=== PATIENT | female | born 1975 | race Caucasian/White ===

== ENCOUNTER 2020-08-16 17:25 | Emergency (ER) | payer BC ==
[2020-08-16 17:33] VITALS: RESP 18
--- NOTE | 2020-08-16 18:26 | XR ---
EXAMINATION TYPE: XR chest 2V DATE OF EXAM: 08/16/2020 COMPARISON: NONE HISTORY: Epigastric pain TECHNIQUE: 2 views FINDINGS: Heart and mediastinum are normal. Lungs are clear. Diaphragm is normal. There are chest suyapa ds. Bony thorax is intact. IMPRESSION: Normal chest.
--- NOTE | 2020-08-16 18:33 | ED ---
Chest Pain HPI - General Chief Complaint: Chest Pain Stated Complaint: Chest Pain Time Seen by Provider: 08/16/20 17:40 Source: patient Mode of arrival: ambulatory Limitations: no limitations - History of Present Illness Initial Comments: 45-year-old female presented to emergency department with a chief complaint of chest pain. Patient reports it started about 2 hours prior to arrival. Patient reports she sneezed and suddenly began to have chest pain by the "diaphragm". With some radiation to the left upper extremity in the jaw. Patient reports t here was no associated shortness of breath but her states she was "gasping" for few minutes prior to catching her breath. Patient reports after about half hour, the pain has had mostly subsided but she began to feel slightly lightheaded with some nausea but no vomiting. He denies any headaches, visual changes, one-sided weakness or paresthesias. Patient reports the pain is mostly resolved and her chest and is only located in the left upper extremity. - Related Data Allergies Allergy/AdvReac Type Severity Reaction Status Date / Time No Known Allergies Allergy Verified 08/16/20 17:28 Review of Systems ROS Statement: Those systems with pertinent positive or pertinent negative responses have been documented in the HPI. ROS Other: All systems not noted in ROS Statement are negative. EKG Findings - EKG Comments: EKG Findings:: Sinus arrhythmia. Ventricular rate 73, IA 154, QRS 68, QTC 416. Past Medical History Past Medical History: No Reported History History of Any Multi-Drug Resistant Organisms: None Reported Past Surgical History: No Surgical Hx Reported Past Psychological History: No Psychological Hx Reported Smoking Status: Never smoker Past Alcohol Use History: Occasional, Rare Past Drug Use History: None Reported General Exam Limitations: no limitations General appearance: alert, in no apparent distress, obese Head exam: Present: atraumatic, normocephalic, normal inspection Eye exam: Present: normal appearance, PERRL, EOMI Pupils: Present: normal accommodation ENT exam: Present: normal exam, normal oropharynx, mucous membranes moist, TM's normal bilaterally, normal external ear exam Neck exam: Present: normal inspection, full ROM. Absent: tenderness Respiratory exam: Present: normal lung sounds bilaterally, chest wall tenderness (Mother producible tenderness to touch in the lower chest region). Absent: respiratory distress, wheezes, rales, rhonchi, stridor Cardiovascular Exam: Present: regular rate, normal rhythm, normal heart sounds. Absent: systolic murmur, diastolic murmur GI/Abdominal exam: Present: soft. Absent: distended, tenderness, guarding, rebound Extremities exam: Present: normal inspection, full ROM, normal capillary refill. Absent: tenderness, pedal edema, joint swelling Back exam: Present: normal inspection, full ROM. Absent: tenderness, CVA tenderness (R), CVA tenderness (L) Neurological exam: Present: alert, oriented X3 Psychiatric exam: Present: normal affect, normal mood Skin exam: Present: warm, dry, intact, normal color Course Vital Signs 08/16/20 17:29 Temperature 98 F Pulse Rate 83 Respiratory 18 Rate Blood Pressure 152/87 O2 Sat by Pulse 100 Oximetry Chest Pain MDM - MDM 45-year-old female presented to emergency department with a chief complaint of chest pain. This was sudden onset chest pain after she sneezed. EKG showing no acute ischemic changes. Vital signs within normal limits. Chest x-ray is unremarkable. She did have some producible tenderness to touch of the lower chest region. This is atypical chest pain very low suspicion for cardiac related event at this time. On reevaluation, the pain has mostly subsided at this point. She will discharged with outpatient follow-up. Return parameters discussed with patient who is a nursing agreeable. Case discussed with Disposition Clinical Impression: Atypical chest pain Disposition: HOME SELF-CARE Condition: Stable Instructions (If sedation given, give patient instructions): Chest Pain (ED) Additional Instructions: Please return to the Emergency Department if symptoms worsen or any other concerns. Is patient prescribed a controlled substance at d/c from ED?: No Referrals: Ashley Zelaya MD [Primary Care Provider] - 1-2 days Time of Disposition: 18:33
[2020-08-16 18:52] VITALS: BP 121/73; PULSE 68; TEMP 97.6
== END 2020-08-16 18:51 | disposition home or self-care (01) ==
LOC: EC 17:25
DX: R07.89 Other chest pain (principal); R42 Dizziness and giddiness; R11.0 Nausea
CPT/HCPCS: 71046; 93005; 99285

== ENCOUNTER → 2023-06-26 | Outpatient (CLI) | payer BC, OTHER ==
--- NOTE | 2023-06-27 11:04 | P.PCN ---
Description of Procedure: CLINICAL: A home sleep apnea test has been done for confirmation of possible obstructive sleep apnea-hypopnea syndrome. DESCRIPTION OF PROCEDURE: RESULTS: Recording time was 8 hours 48 minutes. Evaluation time was 8 hours 38 minutes. Evaluation time is sufficient for making conclusion about results of the test. Raw data of sleep recording has been reviewed and is adequate. Respiratory channel showed 25 apneas and 151 hypopneas. Apnea-hypopnea index was 20.4 per hour. Pulse rate in the range between minimum 53, maximum 100, average 65 by computer calculation. Lowest desaturation was 81%. IMPRESSION: 1. Moderate Obstructive Sleep Apnea Hypopnea Syndrome. Please see other impressions from consultation. PLAN: 1. The patient will be started on auto-PAP treatment for correction of respiratory abnormallities during sleep. 2. I will see patient for follow up visit to discuss results of the test, evaluate clinical response on treatment with PAP therapy and make any necessary adjustments related to mask fitting, pressure, and humidification. 3. Watching weight. 4. Sleep hygiene with regular time in bed for at least 8 hours. 5. No driving if feeling any sleepiness. Thank you very much for allowing me to participate in the management of your patient. Sincerely, Lavell Foss MD, PhD, FAASM Diplomat of [place] [employer] Sleep Medicine Board of [place] [employer] Critical Care Technician of [facility] [place]
== END ==
LOC: 3 N SLEEP 16:40
PROVIDERS: ATTEND Internal Medicine
DX: G47.33 Obstructive sleep apnea (adult) (pediatric) (principal)

== ENCOUNTER → 2023-10-04 | Outpatient (CLI) | payer BC, OTHER ==
[2023-10-04 10:30] VITALS: BP 120/79; PULSE 74; RESP 16; TEMP 98.1
--- NOTE | 2023-10-04 11:10 | P.PROGSL ---
Subjective DATE: 10/04/2023 FOLLOW UP VISIT. Patient with obstructive sleep apnea hypopnea syndrome return to sleep center for follow-up visit. Recently patient had sleep study which documented obstructive sleep apnea hypopnea syndrome. Patient was initiated on PAP therapy and today is first visit after treatment was started. Patient was able to use PAP equipment every night for the whole night. The patient does not have significant problems with the mask, PAP pressure and humidification. Heath sleepiness scale is 5, which is in normal range. I checked information from PAP unit. PAP unit pressure 5-14, average 12.0 cm H2O. Usage is 100% and 73% for more then 4 hours, average 5.5 hours per night. Leak is 7.9 l/m, which is in acceptable range. Apnea Hypopnea Index is 0.7, which is normal. MEDICATIONS: Please see below During physical exam: GENERAL: A pleasant patient without any distress. VITAL SIGNS: Please see below, weight 131 pounds, BMI 38.4. HEENT: PERRLA, EOMI.low position of soft palate, Mallapati 4 . NECK: Supple. No JVD. LUNGS: Clear to percussion and to auscultation. Good air exchange. No wheezing or rhonchi. HEART: S1, S2 regular. ABDOMEN: Soft and nontender.[] EXTREMITIES: No clubbing or cyanosis. HEEL DIPPER: Awake, alert, and oriented x3. No focal deficit. Impressions: 1. Obstructive sleep apnea-hypopnea syndrome. Patient demonstrated great compliance with treatment, benefiting from treatment. 2. Obesity, BMI 38.4. 3. History of ADD. 4. Acid reflux. Plan: 1. Continue using PAP equipment every night for the whole night. 2. To change air filter at least 1-2 times per month. 3. PAP unit should stay lower then position of the head. 4. Advised patient to remove all remaining water from humidifier canister daily and make it dry after each usage. Refill canister with fresh distilled water before each usage. 5. Sleep hygiene with regular time in bed for at least 8 hours. 6. Precautions related to driving. No driving if feel any sleepiness. 7. I will maintain prescription for PAP supplies including mask, tube, filters. 8. Follow up visit in 6 months or earlier if patient has any problems. 9. Watching and losing weight. Thank you very much for allowing me to participate in the management of your patient. Lavell Foss MD, PhD, FAASM. Diplomat of [employer] [place] [employer], Sleep Medicine Board by [employer] [place] [employer] of [employer] Medicine National Secretary of [facility] [place] Objective - Vital Signs Vital Signs: Vital Signs Temp 98.1 F 10/04/23 10:27 Pulse 74 10/04/23 10:27 Resp 16 10/04/23 10:27 BP 120/79 10/04/23 10:27 Pulse Ox 96 10/04/23 10:27 FiO2 Intake & Output 10/03/23 10/04/23 10/04/23 18:59 06:59 18:59 Weight 104.78 kg
== END ==
LOC: 3 N SLEEP 10:20
PROVIDERS: ATTEND Internal Medicine
DX: G47.33 Obstructive sleep apnea (adult) (pediatric) (principal); E66.9 Obesity, unspecified; K21.9 Gastro-esophageal reflux disease without esophagitis; Z86.59 Personal history of other mental and behavioral disorders; Z99.89 Dependence on other enabling machines and devices; Z68.38 Body mass index [BMI] 38.0-38.9, adult
CPT/HCPCS: 99212

== ENCOUNTER → 2024-06-05 | Outpatient (CLI) | payer BC, OTHER ==
[2024-06-05 16:15] VITALS: BP 108/79; PULSE 90; RESP 16; TEMP 97.9
--- NOTE | 2024-06-05 17:45 | P.PROGSL ---
Subjective DATE: 06/05/2024 FOLLOW UP VISIT. Patient with obstructive sleep apnea hypopnea syndrome return to sleep center for follow-up visit. Information from previous visit have been reviewed. Patient is using PAP equipment every night for the whole night, getting PAP supplies in time. The patient does not have significant problems with the mask, PAP unit and humidification. [employer] sleepiness scale is 4, which is perfect. I checked information from PAP unit. PAP unit pressure 5-14, average 13 cm H2O. Usage is 95% for more then 4 hours, average 5.9 hours per night. Leak is 2 l/m, which is in perfect range. Apnea Hypopnea Index is 0.4, which is normal. MEDICATIONS have been reviewed, please see below. During physical exam: GENERAL: A pleasant patient without any distress. VITAL SIGNS: Please see below, weight is 227 lbs. HEENT: PERRLA, EOMI.low position of soft palate, Mallapati 4 . NECK: Supple. No JVD. LUNGS: Clear to percussion and to auscultation. Good air exchange. No wheezing or rhonchi. HEART: S1, S2 regular. ABDOMEN: Soft and nontender.[] EXTREMITIES: No clubbing or cyanosis. CUSTOMER SERVICE COORDINATOR: Awake, alert, and oriented x3. No focal deficit. Impressions: 1. Obstructive sleep apnea-hypopnea syndrome. Patient demonstrated great compliance with treatment, benefiting from treatment. 2. Obesity, BMI 38.3. 3. Acid reflux. 4. History of ADD. Plan: 1. Continue using PAP equipment every night for the whole night. 2. Sleep hygiene with regular time in bed for at least 7.5-8 hours 3. PAP unit should stay lower then position of the head. 4. Advised patient to remove all remaining water from humidifier canister daily and make it dry after each usage. Refill canister with fresh distilled water before each usage. 5. Watching and losing weight. 6. Precautions related to driving. No driving if feel any sleepiness. 7. I will maintain prescription for PAP supplies including mask, tube, filters. 8. Follow up visit in 8 months or earlier if patient has any problems. Thank you very much for allowing me to participate in the management of your patient. Lavell Foss MD, PhD, FAASM. Diplomat of [place] [employer], Sleep Medicine Board by [place] [employer] Medicine Technologist of [facility] [place] Objective - Vital Signs Vital Signs: Vital Signs Temp 97.9 F 06/05/24 16:11 Pulse 90 06/05/24 16:11 Resp 16 06/05/24 16:11 BP 108/79 06/05/24 16:11 Pulse Ox 98 06/05/24 16:11 FiO2 Intake & Output 06/04/24 06/05/24 06/05/24 18:59 06:59 18:59 Weight 102.965 kg Home Medications: Home Medications Medication Instructions Recorded Confirmed Type Cetirizine HCl [Zyrtec] 10 mg PO DAILY 06/05/24 06/05/24 History Dextroamphetamine/Amphetamine 30 mg PO DAILY 06/05/24 06/05/24 History [Adderall Xr 30 mg Capsule] Ergocalciferol [Vitamin D2 (1250 1.25 mg PO WEEKLY 06/05/24 06/05/24 History Mcg = [id number] Iu)] Furosemide [Lasix] 20 mg PO DAILY 06/05/24 06/05/24 History Potassium Chloride ER [K-Dur 20] 20 mg PO DAILY 06/05/24 06/05/24 History Semaglutide [Wegovy] 1 mg SQ WEEKLY 06/05/24 06/05/24 History
== END ==
LOC: 3 N SLEEP 15:37
PROVIDERS: ATTEND Internal Medicine
DX: G47.33 Obstructive sleep apnea (adult) (pediatric) (principal); E66.9 Obesity, unspecified; K21.9 Gastro-esophageal reflux disease without esophagitis; Z68.38 Body mass index [BMI] 38.0-38.9, adult; Z86.59 Personal history of other mental and behavioral disorders
CPT/HCPCS: 99212